=== PATIENT | female | born 1995 | race African-American/Black ===

== ENCOUNTER 2018-04-08 13:28 | Emergency (ER) | payer SELFPAY ==
[~2018-04-08] VITALS: Ht 170.2 cm; Wt 57.0 kg
[2018-04-08] MEDS ORDERED: ALPR0.25 PO (13:51)
[2018-04-08] MEDS ORDERED: FLUORESCEIN SODIUM 1MG/STRIP LEFTEYE ONE (15:45)
[2018-04-08] MEDS ORDERED: TETRACAINE 0.5% OPHTH DROPS 4ML LEFTEYE ONE (15:45)
[2018-04-08 17:42] VITALS: BP 113/65
== END 2018-04-08 17:42 | disposition home or self-care (01) ==
LOC: ER 13:28
DX: H18.822 Corneal disorder due to contact lens, left eye (principal); G40.909 Epilepsy, unspecified, not intractable, without status epilepticus; Z88.0 Allergy status to penicillin
CPT/HCPCS: 99283

== ENCOUNTER 2018-05-27 17:34 | Emergency (ER) | payer SELFPAY ==
[~2018-05-27] VITALS: Ht 165.1 cm; Wt 64.0 kg
[~2018-05-27 17:34] MED LIST: ALPR0.25 PO
[2018-05-27 17:39] VITALS: BP 114/68
== END 2018-05-27 18:30 | disposition left against medical advice (07) ==
LOC: ER 17:34
DX: Z53.21 Procedure and treatment not carried out due to patient leaving prior to being seen by health care provider (principal); F41.9 Anxiety disorder, unspecified; R56.9 Unspecified convulsions

== ENCOUNTER 2018-05-27 23:08 | Emergency (ER) | payer BC, OTHER ==
[~2018-05-27] VITALS: Ht 170.2 cm; Wt 56.0 kg
[2018-05-28] MEDS ORDERED: KETOROLAC 30MG/ML VIAL IM ONE (02:00)
[2018-05-28 04:50] VITALS: BP 100/50
== END 2018-05-28 04:50 | disposition home or self-care (01) ==
LOC: ER 23:08
DX: S00.83XA Contusion of other part of head, initial encounter (principal); S05.12XA Contusion of eyeball and orbital tissues, left eye, initial encounter; F17.200 Nicotine dependence, unspecified, uncomplicated; F31.9 Bipolar disorder, unspecified; Z88.1 Allergy status to other antibiotic agents; Z79.899 Other long term (current) drug therapy; V79.0 Driver of bus injured in collision with other and unspecified motor vehicles in nontraffic accident; W22.11XA Striking against or struck by driver side automobile airbag, initial encounter; Y93.89 Activity, other specified; Y92.89 Other specified places as the place of occurrence of the external cause; Y99.8 Other external cause status
CPT/HCPCS: 70450; 70486; 96372; 99284; J1885